=== PATIENT | female | born 1990 | race Caucasian/White ===

== ENCOUNTER → 2016-07-10 | Outpatient (CLI) | payer BC | LOC: COL.PUL 10:56 | DX: R06.09 Other forms of dyspnea (principal) ==

== ENCOUNTER → 2016-07-26 | Outpatient (CLI) | payer BC | LOC: COL.PUL 12:56 | DX: R06.09 Other forms of dyspnea (principal) | CPT/HCPCS: J7674 ==

== ENCOUNTER → 2016-08-30 | Outpatient (CLI) | payer BC | LOC: COL.CARD 07:14 | DX: R00.2 Palpitations (principal) ==